=== PATIENT | male | born 1970 | race Caucasian/White ===

== ENCOUNTER 2017-03-21 11:03 | Emergency (ER) | payer MEDICAID, OTHER ==
--- NOTE | 2017-03-21 11:22 | EDM.PDOC ---
ED HPI GENERAL MEDICAL PROBLEM - General Chief Complaint: General Stated Complaint: NOT SLEEPING/NEVE DISEASE Time Seen by Provider: 03/21/17 11:17 Source of Information: Reports: Patient History Limitations: Reports: No Limitations - History of Present Illness INITIAL COMMENTS - FREE TEXT/NARRATIVE: HISTORY AND PHYSICAL: History of present illness: [Comes to the emergency room complaining of insomnia. He has a history of bipolar disorder which he has not been treated for in quite some time. Patient moved to [place] one week ago started job. When he arrived here he found that his job has been given away and now he is unemployed. He states that he has not slept for the last 4 nights because he cannot slow down his mind enough to sleep. He has no other complaints or concerns. In the past he's taken Ambien and trazodone which did not help him fall asleep. The only things that worked in the past for Valium and clonazepam. He has not established care with a local primary care provider. He plans to return to [place] in the next several weeks but he is not sure how he is going to do that since he isn't currently working. He denies suicidal and homicidal thoughts.] Review of systems: As per history of present illness and below otherwise all systems reviewed and negative. Past medical history: As per history of present illness and as reviewed below otherwise noncontributory. Surgical history: As per history of present illness and as reviewed below otherwise noncontributory. Social history: No reported history of drug or alcohol abuse. Family history: As per history of present illness and as reviewed below otherwise noncontributory. Physical exam: HEENT: Atraumatic, normocephalic. Oral mucous membranes are pink and moist. Extremities: Atraumatic without deformity. Neurovascular unremarkable. Neuro: Awake, alert, oriented. Makes good eye contact. Thoughts are logical and speech is clear. Motor and sensory unremarkable throughout. Exam nonfocal. Impression: [Insomnia] Plan: [Patient is prescribed temazepam 15 mg #1 to use this evening and zero refills. Discussed with him that he needs to be evaluated by [facility]. There walk-in clinic hours are provided to patient. He is in agreement with today's plan.] Definitive disposition and diagnosis as appropriate pending reevaluation and review of above. Generalized Pain Score (Numeric/FACES): 3 - Related Data Allergies Allergy/AdvReac Type Severity Reaction Status Date / Time morphine Allergy Nausea Verified 03/21/17 11:13 Home Meds: Home Meds . [No Known Home Meds] 06/07/15 [History] Past Medical History - Past Health History Medical/Surgical History: Denies Medical/Surgical History Social & Family History - Tobacco Use Smoking Status *Q: Never Smoker Years of Tobacco use: 2 Second Hand Smoke Exposure: No - Recreational Drug Use Recreational Drug Use: No ED ROS GENERAL - Review of Systems Review Of Systems: ROS reveals no pertinent complaints other than HPI. ED EXAM, GENERAL - Physical Exam Exam: See Below Course - Vital Signs Last Recorded V/S: Last Vital Signs Temp 98.2 F 03/21/17 11:15 Pulse 80 03/21/17 11:15 Resp 16 03/21/17 11:15 BP 130/80 03/21/17 11:15 Pulse Ox 95 03/21/17 11:15 Departure - Departure Time of Disposition: 11:35 Disposition: Home, Self-Care 01 Condition: good Clinical Impression: Insomnia Qualifiers: Insomnia type: unspecified Qualified Code(s): G47.00 - Insomnia, unspecified - Discharge Information Instructions: Insomnia Referrals: PCP,Not In Area [Primary Care Provider] - Forms: ED Department Discharge Additional Instructions: The following information is given to patients seen in the emergency department who are being discharged to home. This information is to outline your options for follow-up care. We provide all patients seen in our emergency department with a follow-up referral. The need for follow-up, as well as the timing and circumstances, are variable depending upon the specifics of your emergency department visit. If you don't have a primary care physician on staff, we will provide you with a referral. We always advise you to contact your personal physician following an emergency department visit to inform them of the circumstance of the visit and for follow-up with them and/or the need for any referrals to a consulting specialist. The emergency department will also refer you to a specialist when appropriate. This referral assures that you have the opportunity for follow-up care with a specialist. All of these measure are taken in an effort to provide you with optimal care, which includes your follow-up. Under all circumstances we always encourage you to contact your private physician who remains a resource for coordinating your care. When calling for follow-up care, please make the office aware that this follow-up is from your recent emergency room visit. If for any reason you are refused follow-up, please contact the [facility] emergency department at and asked to speak to the emergency department charge nurse. [address] [address] Fill your prescription at local pharmacy and take as directed. Go to [facility] tomorrow between the hours of 8 AM and 9 AM for evaluation of insomnia. Return to ER as needed as discussed.
[2017-03-21 11:25] VITALS: BP 130/80
== END 2017-03-21 11:45 | disposition home or self-care (01) ==
LOC: MW.ED 11:03
DX: G47.00 Insomnia, unspecified (principal); Z88.5 Allergy status to narcotic agent
CPT/HCPCS: 99283